=== PATIENT | male | born 1990 | race Caucasian/White ===

== ENCOUNTER 2022-10-07 07:53 | Emergency (ER) | payer BC ==
[~2022-10-07] VITALS: Ht 167.6 cm; Wt 68.0 kg
[2022-10-07 08:12] VITALS: TEMP 98.6
[2022-10-07 08:45] VITALS: BP 145/94; PULSE 95; RESP 18
[2022-10-07] MEDS ORDERED: ACETAMINOPHEN WITH CODEINE 300/30MG TABLET PO ONE (08:45)
[2022-10-07] MEDS ORDERED: IBUP-2028 PO (09:15)
[2022-10-07] MEDS ORDERED: T3 PO (09:15)
== END 2022-10-07 10:20 | disposition home or self-care (01) ==
LOC: ER 07:53
DX: M25.562 Pain in left knee (principal)
CPT/HCPCS: 29505; 73560; 99283